=== PATIENT | female | born 1970 | race Caucasian/White ===

== ENCOUNTER → 2016-12-21 | Outpatient (CLI) | payer BC | LOC: FIMAGING 11:18 | PROVIDERS: ATTEND Internal Medicine Hematology & Oncology | DX: Z03.89 Encounter for observation for other suspected diseases and conditions ruled out (principal); Z85.3 Personal history of malignant neoplasm of breast; Z85.038 Personal history of other malignant neoplasm of large intestine | CPT/HCPCS: 78306; A9503 ==